=== PATIENT | female | born 1970 | race Caucasian/White ===

== ENCOUNTER 2017-01-29 15:45 | Emergency (ER) | payer OTHER ==
[~2017-01-29] VITALS: Ht 180.3 cm; Wt 85.3 kg
[~2017-01-29 15:45] MED LIST: PERCOCET 5-3251 EACH PO
[2017-01-29 16:05] LABS: ABSOLUTE BASOPHIL COUNT 0.1 /CUMM (0.0-0.2); ABSOLUTE EOSINOPHIL COUNT 0.2 /CUMM (0.0-0.7); ABSOLUTE GRANULOCYTE CT 9.5 /CUMM (1.4-6.5); ABSOLUTE LYMPH COUNT 2.2 /CUMM (1.2-3.4); ABSOLUTE MONOCYTE COUNT 0.6 /CUMM (0.10-0.60); BASOPHIL % 0.4 % (0.0-2.0); EOSINOPHIL % 1.4 % (0-5); HEMATOCRIT 43.7 % (37-47); MEAN CORPUSCULAR HGB 28.2 PG (27.0-31.0); MEAN CORPUSCULAR HGB CONC 33.1 G/DL (33.0-37.0); MEAN CORPUSCULAR VOLUME 85.1 FL (81.0-99.0); MEAN PLATELET VOLUME 7.5 FL (7.4-10.4); PLATELET COUNT 263 /CUMM (130-400); RBC DISTRIBUTION WIDTH 14.4 % (11.5-14.5); RED BLOOD CELL CT 5.14 /CUMM (4.20-5.40); WHITE BLOOD CELL COUNT 12.5 /CUMM (4.8-10.8)
[2017-01-29] MEDS ORDERED: ACETAMINOPHEN500 M4 PO (16:20)
--- NOTE | 2017-01-29 16:22 | ED GENERAL ADULT ---
History of Present Illness General Chief Complaint: Abdominal Pain/Flank Pain Stated Complaint: RT SIDED BACK Source: patient Exam Limitations: no limitations Vital Signs & Intake/Output Vital Signs & Intake/Output Vital Signs Date Time Temp Pulse Resp B/P B/P Pulse O2 O2 Flow FiO2 Mean Ox Delivery Rate 01/30 2020 98.1 106 16 134/60 97 Room Air 01/29 1805 97.6 105 16 116/65 96 Room Air 01/29 1548 97.9 106 18 109/72 97 Room Air Allergies Coded Allergies: NO KNOWN ALLERGIES (12/07/11) Triage Note: PT SENT BY PMD DUE TO 1.5 MONTHS OF MID ABD PAIN THAT RADIATES INTO HER BACK AND NAUSEA Triage Nurses Notes Reviewed? yes HPI: 38-year-old female with a history of recently diagnosed large cell lung cancer ( currently receiving oral medications from [facility] x8 months, which she is unable to recall the name of) presenting with a constant right upper quadrant pain/pressure that radiates into both the epigastric and right flank 1.5 months. Reports abdominal fullness that causes early satiety, no worsening or alleviating factors. Symptoms are associated with nausea, no vomiting. Denies fevers, diarrhea, dysuria, vaginal bleeding/discharge. Has seen her PMD for the same, reports she had no lab work or imaging, was trialed on pantoprazole without relief. (KALYN UMANA,VIJAYA) Reconcile Medications Acetaminophen 500 MG TABLET 3 TAB PO PRN PAIN (Reported) Oxycodone HCl 5 MG TABLET 1 TAB PO EVERY 6 HOUR PRN pain (LEEANN GOLDEN DO) Past History Travel History Traveled to [place] past 21 day No Medical History Any Pertinent Medical History? 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 No (VIJAYA MCCAIN PA-C) Review of Systems Review of Systems Constitutional: Reports: no symptoms. Respiratory: Reports: no symptoms. Cardiovascular: Reports: no symptoms. GI: Reports: abdominal pain, nausea. Denies: constipation, diarrhea, bloody stool, changes in stool, vomiting. Genitourinary: Reports: no symptoms. Musculoskeletal: Reports: no symptoms. Skin: Reports: no symptoms. Neurological/Psychological: Reports: no symptoms. (KALYN UMANA,VIJAYA) Physical Exam Physical Exam General Appearance: well developed/nourished, no apparent distress, mild distress Head: atraumatic Respiratory: normal breath sounds, lungs clear Cardiovascular: regular rate/rhythm Gastrointestinal: normal bowel sounds, soft, no organomegaly, TTP over the RUQ and epigastric area, no rebound or guarding, neg jenkins's sign. Neurologic/Psych: awake, alert, oriented x 3 Core Measures ACS in differential dx? No CVA/TIA Diagnosis: No Severe Sepsis Present: No Septic Shock Present: No (KALYN UMANA,VIJAYA) Progress Differential Diagnoses I considered the following diagnoses in my evaluation of the patient: [ Metastases versus new malignancy versus cholecystitis versus cholelithiasis versus pancreatitis versus GERD versus peptic ulcer disease] Plan of Care: Orders Procedure Date/time Status Add-on Test (ER Only) 01/29 1744 Active LIPASE 01/29 1554 Complete URINALYSIS 01/29 1551 Active LACTIC ACID 01/29 1551 Complete COMPREHENSIVE METABOLIC PANEL 01/29 1551 Complete CBC WITHOUT DIFFERENTIAL 01/29 1551 Complete Laboratory Tests 01/29/17 1554: Lactic Acid Cancelled 01/29/17 1554: Anion Gap 13, Estimated GFR > 60, BUN/Creatinine Ratio 10.0, Glucose 93, Lactic Acid 0.8, Calcium 9.5, Total Bilirubin 0.5, AST 15, ALT 33, Alkaline Phosphatase 119, Total Protein 7.1, Albumin 4.2, Globulin 2.9, Albumin/Globulin Ratio 1.4, Lipase 56, CBC w Diff NO MAN DIFF REQ, RBC 5.14, MCV 85.1, MCH 28.2, RDW 14.4, MPV 7.5, Gran % 76.0 H, Lymphocytes % 17.6 L, Monocytes % 4.6, Eosinophils % 1.4, Basophils % 0.4, Absolute Granulocytes 9.5 H, Absolute Lymphocytes 2.2, Absolute Monocytes 0.6, Absolute Eosinophils 0.2, Absolute Basophils 0.1, PUBS MCHC 33.1 Labs remarkable for elevated white blood cell count to 12. CT scan concerning for mets to liver and bilateral adrenals. Pt informed of findings and expressing concern that she is not receiving adequate care at [facility]. Pt referred to Dr. Mcneill. Given 30 day supply of oxycodone for pain control (ok' d by Dr. Golden). Also given contact information for Dr. Golden office if she is unable to arrange care with Dr. Mcneill. (VIJAYA MCCAIN PA-C) Initial ED EKG: none (VIJAYA MCCAIN PA-C) Departure Departure Disposition: HOME OR SELF CARE Condition: Stable Clinical Impression Primary Impression: Lung cancer Secondary Impressions: Liver mass, Mass of both adrenal glands Referrals: RONALDO COLVIN MD (PCP/Family) Additional Instructions: Use of oxycodone every 6 hours as needed for pain. Follow up with Dr. Mcneill for further management. Please contact Dr. Golden's office if you are unable to get through to Dr. Mcneill. Return to the ED for any new or worsening symptoms. Departure Forms: Customer Survey General Discharge Information (VIJAYA MCCAIN PA-C) Departure Prescriptions: Current Visit Scripts Oxycodone HCl 1 TAB PO EVERY 6 HOUR PRN pain #30 TAB PA/SUPERVISOR WEAVING Co-Sign Statement Statement: ED Attending supervision documentation- [] I saw and evaluated the patient. I have also reviewed all the pertinent lab results and diagnostic results. I agree with the findings and the plan of care as documented in the PA's/SUPERVISOR WEAVING's documentation. [x] I have reviewed the ED Record and agree with the PA's/SUPERVISOR WEAVING's documentation. [] Additions or exceptions (if any) to the PAs/SUPERVISOR WEAVING's note and plan are summarized below: [] (LEEANN GOLDEN DO) Critical Care Note Critical Care Note Critical Care Time: non-applicable (VIJAYA MCCAIN PA-C)
--- NOTE | 2017-01-29 19:50 | CT SCAN REPORT ---
EXAMINATION: CT ABDOMEN AND PELVIS WITH CONTRAST CLINICAL INFORMATION: Right upper quadrant abdominal pain and fullness. Evaluate for metastases from lung cancer. COMPARISON: CT abdomen and pelvis 12/07/2011. TECHNIQUE: Multidetector volumetric imaging was performed of the abdomen and pelvis before and after the IV administration of 95 mL of Optiray 320 intravenous contrast. Sagittal and coronal reformatted images were obtained on the technologist's workstation. DLP: 445 mGy-cm FINDINGS: LUNG BASES: Evaluation of the included lung bases demonstrates minimal dependent bibasilar atelectasis. LIVER, GALLBLADDER, AND BILIARY TREE: The liver is normal in size, shape, and attenuation. No focal hepatic lesion or biliary ductal dilatation is present. The gallbladder is unremarkable with no evidence of radiopaque gallstones, gallbladder wall thickening, or obvious pericholecystic inflammatory changes. PANCREAS: Unremarkable appearance of the pancreas. No peripancreatic inflammatory changes or fluid collections. Of note, there is an ill-defined hypoattenuating density adjacent to the head and uncinate process of the pancreas measuring approximately 1.7 x 2.1 cm (series 2, image 26). This lesion is indeterminate. Cannot exclude metastatic adenopathy given the patient's history of lung cancer. SPLEEN: Unremarkable. ADRENAL GLANDS: In comparison to a prior CT of the abdomen dating back to 2011, there has been interval development of bilateral adrenal gland masses. The right adrenal gland mass measures approximately 3.8 x 6.2 x 6.0 cm. The left adrenal gland mass measures approximately 1.2 x 2.1 cm. These masses are incompletely characterized on this examination. Cannot exclude bilateral adrenal gland metastases. KIDNEYS AND URETERS: The kidneys are normal in size, shape, and attenuation. No hydronephrosis, hydroureter, or calculi seen. No perinephric stranding. There is a simple renal cortical cyst within the lower pole of the right kidney measuring 1.9 cm. BLADDER: Unremarkable. GASTROINTESTINAL TRACT: Normal anatomic orientation of the stomach relative to the duodenum. Normal caliber of abdominal and pelvic bowel loops, without evidence of obstruction or ileus. No circumferential bowel wall thickening with surrounding inflammatory changes to suggest an underlying infectious or inflammatory enterocolitis. Normal-appearing appendix within the right lower quadrant of the abdomen. Scattered colonic diverticulosis, notably involving the descending and rectosigmoid colon, without diverticulitis. No organizing intra-abdominal fluid collections or free intraperitoneal air. ABDOMINAL WALL: No significant hernia is appreciated. LYMPH NODES: As noted above, there has been interval development of a 1.7 x 2.1 cm ill-defined hypoattenuating density within the upper abdomen, adjacent to the head and uncinate process of the pancreas and in the region of the tj hepatis. This hypoattenuating lesion is incompletely characterized on this examination. Cannot exclude metastatic adenopathy. VASCULAR: Patent abdominal vasculature. Normal course and caliber of the abdominal aorta and its branching vessels, without aneurysmal dilatation. Scattered atherosclerosis of the abdominal aorta and its branching vessels. PELVIC VISCERA: Several hypoattenuating structures within the left ovary, which may reflect small left ovarian cysts. OSSEOUS STRUCTURES: No acute osseous abnormality. No visible destructive osseous lesions. Normal alignment of the thoracolumbar spine. IMPRESSION: 1. Interval development of bilateral adrenal gland masses measuring 3.8 x 6.2 x 6.0 cm on the right and 1.2 x 2.1 cm on the left. These masses are indeterminate and incompletely characterized on this examination. Cannot exclude bilateral adrenal gland metastases from the patient's reported history of lung cancer. Consider correlation with PET/CT. 2. Interval development of a 1.7 x 2.1 cm ill-defined hypoattenuating density within the upper abdomen, in the region of the tj hepatis and adjacent to the head and uncinate process of the pancreas. This lesion is also indeterminate but may reflect metastatic adenopathy.
[2017-01-29 20:20] VITALS: BP 134/60
[2017-01-29] MEDS ORDERED: OXYCODONE HCL5 M1 PO (20:40)
[2017-02-05] MEDS ORDERED: NICOTINE PATCH1 EAC2 (16:36)
[2017-02-05] MEDS ORDERED: PANTOPRAZOLE SO40 M1 (16:36)
[2017-02-05] MEDS ORDERED: PROAIR HFA8.5 GM INH (16:36)
[2017-02-05] MEDS ORDERED: OXYCODONE HCL10 M2 PO ×2 (18:42→19:06)
== END 2017-01-29 20:43 ==
LOC: ERH 15:45
PROVIDERS: Emergency Medicine
DX: C22.8 Malignant neoplasm of liver, primary, unspecified as to type (principal); E27.8 Other specified disorders of adrenal gland
CPT/HCPCS: 74177; 96372; 96374; J1885

== ENCOUNTER 2017-09-02 12:58 | Emergency (ER) | payer OTHER ==
[~2017-09-02] VITALS: Ht 180.3 cm; Wt 63.5 kg
[~2017-09-02 12:58] MED LIST changes: +ACETAMINOPHEN500 M4 PO; +AMIODARONE HCL200 M1 PO; +DEXAMETHASONE4 M1 PO; +FOLIC ACID1 M1 PO; +K-TAB ER20 MEQ PO; +LEXAPRO10 M1 PO; +LORAZEPAM0.5 M1 PO; +MARINOL2.5 MG PO; +MELATONIN5 M7 PO; +METHYLPREDNISOLO4 M2 PO; +MS CONTIN100 MG PO; +NICOTINE PATCH1 EAC2; +OXYCODONE HCL10 M2 PO; +OXYCODONE HCL30 M1 PO; +OXYCODONE HCL5 M1 PO; +PANTOPRAZOLE SO40 M1 PO; +PROAIR HFA8.5 GM INH; +PROCHLORPERAZIN10 MG PO; +REGLAN10 M1 PO; +SCOPOLAMINE1 EAC1 TOP; +TRANSDERM-SCOP1 EACH TOP; +ZOFRAN8 M1 PO
--- NOTE | 2017-09-02 13:45 | ED GI/GU/ABDOMINAL COMPLAINT ---
History of Present Illness General Chief Complaint: Nausea, Vomiting, Diarrhea Stated Complaint: +NVD, STAGE 4 LUNG CANCER Source: patient Exam Limitations: no limitations Vital Signs & Intake/Output Vital Signs & Intake/Output Vital Signs Date Time Temp Pulse Resp B/P B/P Pulse O2 O2 Flow FiO2 Mean Ox Delivery Rate 09/02 1612 98.8 88 16 113/56 98 Room Air Room Air 09/02 1303 98.6 96 18 102/72 98 Room Air Allergies Coded Allergies: NO KNOWN ALLERGIES (12/07/11) Reconcile Medications Albuterol Sulfate (Proair Hfa) 90 MCG HFA.AER.AD 2 PUF INH PRN RESPIRATORY ( Reported) Docusate Sodium (Colace) 100 MG CAPSULE 1 CAP PO BID CONSTIPATION (Reported) Dronabinol (Marinol) 2.5 MG CAPSULE 1 CAP PO BID NAUSEA (Reported) Melatonin 5 MG TABLET 1 TAB PO QPM SLEEP (Reported) Metoclopramide HCl (Reglan) 10 MG TABLET 1 TAB PO TID NAUSEA (Reported) 30 minutes before meals and bedtime Olanzapine 10 MG TABLET 1 TAB PO QPM SLEEP (Reported) Ondansetron HCl (Zofran) 8 MG TABLET 1 TAB PO TID NAUSEA (Reported) Oxycodone HCl 30 MG TABLET 1 TAB PO Q4P PRN PAIN (Reported) Oxycodone HCl (Oxycontin) 80 MG TAB.ER.12H 1 TAB PO BID PAIN (Reported) Pantoprazole Sodium 40 MG TABLET.DR 1 TAB PO DAILY ACID REFLUX (Reported) Polyethylene Glycol 3350 17 GRAM POWD.PACK 1 PAC PO DAILY GI (Reported) Scopolamine 1 MG/3 DAY PATCH.TD.3 1 PAT TOP Q72H NAUSEA (Reported) Sennosides (Senna) 8.6 MG TABLET 2 TAB PO QPM CONSTIPATION (Reported) Zinc Sulfate 220 MG (50 MG ZINC) CAPSULE 1 CAP PO DAILY SUPPLEMENT (Reported) Triage Note: PT STATES SHE IS NOT FEELING WELL, NOT ABLE TO KEEP ANYTHING DOWN AND SHE IF VOMITING BLOOD FOR THE PAST 2 DAYS. PT STATES SHE WAS SEEN AT [facility] AND HAD A LITER OF FLUIDS AND NAUSEA MEDS AND SHE LEFT FEELING THE SAME. PT WITH HX OF ETHAN 4 LUNG CA WITH METS. Triage Nurses Notes Reviewed? yes ? N Is pt currently ? No Onset: Abrupt Duration: day(s): (2) Timing: multiple episodes today Location: generalized abdomen Radiation: no radiation Activities at Onset: none Modifying Factors: Worsens With: eating. 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 Patient states the symptoms started yesterday morning. She was seen at [facility] yesterday for a few hours and discharged home but she states she was feeling the same way. No fever but positive chills. Her was sick at home with diarrhea. She is currently on chemotherapy due to have her next round this week. She follows up at some [facility]. This morning she tried to contact her oncologist a few times but was unable to hear back and came here for evaluation. She reports upper abdominal pain. She states there is a scant amount of blood in her vomiting and diarrhea. Patient states she has not been able to tolerate any of her opiate pain medications and keeps vomiting them up. (Kevin ARIAS,Neela) Past History Travel History Traveled to [place] past 21 day No Medical History Any Pertinent Medical History? 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 No (Kevin ARIAS,Neela) Review of Systems Review of Systems Constitutional: Reports: malaise, weakness. Denies: chills, fever. EENTM: Reports: no symptoms. Respiratory: Denies: cough, short of breath, sputum production. Cardiovascular: Reports: no symptoms. GI: Reports: abdominal pain, diarrhea, nausea, vomiting. Genitourinary: Denies: discharge, dysuria, frequency, hematuria. Musculoskeletal: Reports: no symptoms. Skin: Reports: no symptoms. Neurological/Psychological: Reports: no symptoms. Hematologic/Endocrine: Reports: bleeding (SCANT BLOOD IN VOMIT). Denies: bruising, polyuria, polydipsia. Immunologic/Allergic: Denies: splenectomy. All Other Systems: Reviewed and Negative (Neela Brown MD) Physical Exam Physical Exam General Appearance: alert, awake, anxious, cachetic, mild distress, moderate distress, thin Head: atraumatic, normal appearance Eyes: Bilateral: PERRL. Ears, Nose, Throat, Mouth: hearing grossly normal, DRY MUCUS MEMBRANES Neck: normal inspection, supple, full range of motion Respiratory: normal breath sounds, chest non-tender, no respiratory distress Cardiovascular: regular rate/rhythm, normal peripheral pulses Peripheral Pulses: 2+ radial (R), 2+ radial (L) Gastrointestinal: soft, tenderness (MILD DIFFUSE), PALPABLE 2 CM MASS EPIGASTRIUM, METASTATIC LESION PER PATIENT Back: normal inspection, normal range of motion Extremities: normal range of motion Neurologic/Psych: no motor/sensory deficits, awake, alert, oriented x 3 Skin: intact, normal color, warm/dry Core Measures ACS in differential dx? No Sepsis Present: No Sepsis Focused Exam Completed? No (Neela Brown MD) Progress Differential Diagnosis: peptic ulcer, PUD/GERD, ENTERITIS, COLITIS, SUSAN, DEHYDRATION, WORSENING METASTATIC DISESEASE, ILEUS Plan of Care: Orders Procedure Date/time Status EKG 09/02 1354 Active URINALYSIS 09/02 1346 Active LIPASE 09/02 1346 Complete LACTIC ACID 09/02 1346 Complete COMPREHENSIVE METABOLIC PANEL 09/02 1346 Complete CBC WITHOUT DIFFERENTIAL 09/02 1346 Complete MAGNESIUM 09/02 1325 Complete Current Medications Sig/Catherine Start time Last Medication Dose Stop Time Status Admin Oxycodone HCl 30 MG ONCE ONE 09/02 1715 AC (OxyCONTIN) 09/02 1716 Laboratory Tests 09/02/17 1646: Lactic Acid Cancelled 09/02/17 1354: Magnesium Cancelled 09/02/17 1325: Anion Gap 16, Estimated GFR > 60, BUN/Creatinine Ratio 23.3, Glucose 103 H, Lactic Acid 1.2, Calcium 10.5 H, Magnesium 1.8, Total Bilirubin 0.5, AST 16, ALT 28, Alkaline Phosphatase 106, Total Protein 7.7, Albumin 4.8, Globulin 2.9, Albumin/Globulin Ratio 1.7, Lipase 65, CBC w Diff NO MAN DIFF REQ, RBC 5.03, MCV 88.9, MCH 30.1, RDW 14.9 H, MPV 7.6, Gran % 78.6 H, Lymphocytes % 16.0 L, Monocytes % 4.8, Eosinophils % 0.5, Basophils % 0.1, Absolute Granulocytes 9.5 H, Absolute Lymphocytes 1.9, Absolute Monocytes 0.6, Absolute Eosinophils 0.1, Absolute Basophils 0, PUBS MCHC 33.9 DR BRANDON COYNE ONCOLOGIST AT [facility] Diagnostic Imaging: Viewed by Me: CT Scan. Discussed w/RAD: CT Scan. Initial ED EKG: NSR Hand-Off Endorsed To: Nestor Paul MD Endorsed Time: 1500 Pending: CT (Neela Brown MD) Radiology Impression: PATIENT: ROGE JIM PRESENT AGE: 46 PATIENT ACCOUNT NO: [id number] : 68 LOCATION: [facility] ORDERING PHYSICIAN: Nestor Paul MD SERVICE DATE: 09/02/17 EXAM TYPE : CAT - CT ABD & PELVIS W IV CONTRAST EXAMINATION: CT ABDOMEN AND PELVIS WITH CONTRAST CLINICAL INFORMATION: Vomiting, diarrhea. History of metastatic lung cancer COMPARISON: 05/22/2017 TECHNIQUE: Multidetector volumetric imaging was performed of the abdomen and pelvis following IV administration of 95 mL of Optiray 320 intravenous contrast. Sagittal and coronal reformatted images were obtained on the technologist's workstation. DLP: 290 mGy-cm FINDINGS: LUNG BASES : The visualized lung bases are unremarkable. LIVER, GALLBLADDER, AND BILIARY TREE: The liver is normal in size, shape, and attenuation. No focal hepatic lesion or biliary ductal dilatation is present. The gallbladder is unremarkable with no evidence of radiopaque gallstones, gallbladder wall thickening, or obvious pericholecystic inflammatory changes. PANCREAS: Unremarkable. SPLEEN: Unremarkable. ADRENAL GLANDS: Markedly enlarged right adrenal gland has significantly decreased in size although remains diffusely thickened. Nodular thickening of the left adrenal gland has markedly decreased. KIDNEYS AND URETERS : The kidneys are normal in size, shape, and attenuation. No hydronephrosis, hydroureter, or calculi seen. No perinephric stranding. BLADDER: Unremarkable. GASTROINTESTINAL TRACT: The small and large bowel are unremarkable. The appendix is unremarkable. ABDOMINAL WALL: The subcutaneous soft tissue nodule distal to the xiphoid has decreased in size, measuring 1.8 cm. LYMPH NODES: Normal. VASCULAR: Unremarkable. PELVIC VISCERA: Unremarkable. OSSEOUS STRUCTURES: Unremarkable. IMPRESSION: No focal inflammatory process or obstruction. Significant decrease in size of the nodular and thickened adrenal glands, as well as the subcutaneous soft tissue nodule of the anterior upper abdomen. No new abnormality. DICTATED BY: Dwight Velazquez MD DATE/TIME DICTATED:09/02/171629 REPROGRAPHICS ASSOCIATE:MICHELE DATE/TIME TRANSCRIBED:09/02/171629 CONFIDENTIAL, DO NOT COPY WITHOUT APPROPRIATE AUTHORIZATION. 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 09/02/2017 5:02:24 PM I have updated Faith on her test results. She feels "much better" and wishes to return home. She is requesting to drink some orange juice and so we will assure that she is able to drink fluids, and take her potassium and pain medication. She has an appointment with her oncologist specialist on . In regards to her presentation today, we have discussed the possibility of a viral syndrome and side effect of the cancer or treatment. (Beverly ARIAS,Nestor Chang) Departure Departure Condition: Stable Referrals: Unknown (PCP/Family) Departure Forms: Customer Survey General Discharge Information (Kevin ARIAS,Neela) Departure Disposition: HOME OR SELF CARE Clinical Impression Primary Impression: Vomiting and diarrhea Secondary Impressions: Metastatic cancer, Opiate withdrawal Additional Instructions: Continue your current care. If you're feeling nauseous then stick with a clear liquid diet until you're feeling better. Take your previously prescribed nausea medicine if necessary. Restart your potassium pills given your low potassium level here in the emergency department. Notify your primary care physician and cancer specialist about this emergency department visit and treatment plan. Return if any concerns or sudden worsening. Please note that there might be incidental findings in your evaluation that are unrelated to the current emergency department visit. Please notify your primary care doctor about this emergency department visit in order to obtain and review all of the testing performed so that these incidental findings can be monitored as needed. If you had an x-ray performed, please understand that some fractures may not be seen on the initial set of x-rays. If your symptoms persist you might need a repeat set of x-rays to check for such a fracture. If you had a laceration evaluated, please understand that foreign bodies such as glass or wood may not be visible to the naked eye or on plain x-rays. If the wound becomes red, swollen, increasingly more painful or if there is any drainage from the wound, please have it reevaluated by a physician for the possibility of a retained foreign body. If you're unable to follow up as outlined in the discharge instructions please return to the emergency department. Thank you for choosing the [facility] Emergency Department for your care. It was a pleasure to serve you today. Nestor Paul M.D. [facility] (Beverly ARIAS,Nestor Chang)
[2017-09-02 14:36] LABS: ABSOLUTE BASOPHIL COUNT 0 /CUMM (0.0-0.2); ABSOLUTE EOSINOPHIL COUNT 0.1 /CUMM (0.0-0.7); ABSOLUTE GRANULOCYTE CT 9.5 /CUMM (1.4-6.5); ABSOLUTE LYMPH COUNT 1.9 /CUMM (1.2-3.4); ABSOLUTE MONOCYTE COUNT 0.6 /CUMM (0.10-0.60); BASOPHIL % 0.1 % (0.0-2.0); EOSINOPHIL % 0.5 % (0-5); GRANULOCYTE % 78.6 % (42.2-75.2); HEMATOCRIT 44.7 % (37-47); MEAN CORPUSCULAR HGB 30.1 PG (27.0-31.0); MEAN CORPUSCULAR HGB CONC 33.9 G/DL (33.0-37.0); MEAN CORPUSCULAR VOLUME 88.9 FL (81.0-99.0); MEAN PLATELET VOLUME 7.6 FL (7.4-10.4); PLATELET COUNT 221 /CUMM (130-400); RBC DISTRIBUTION WIDTH 14.9 % (11.5-14.5); RED BLOOD CELL CT 5.03 /CUMM (4.20-5.40); WHITE BLOOD CELL COUNT 12.1 /CUMM (4.8-10.8)
[2017-09-02] MEDS ORDERED: COLACE100 M1 PO (14:41)
[2017-09-02] MEDS ORDERED: OLANZAPINE10 M1 PO (14:42)
[2017-09-02] MEDS ORDERED: PANTOPRAZOLE SO40 M1 PO (14:43)
[2017-09-02] MEDS ORDERED: POLYETHYLENE GL17 GM PO (14:43)
[2017-09-02] MEDS ORDERED: OXYCONTIN80 M1 PO (14:43)
[2017-09-02] MEDS ORDERED: SENNA8.6 M3 PO (14:44)
[2017-09-02] MEDS ORDERED: ZINC SULFATE PO (14:45)
--- NOTE | 2017-09-02 16:47 | CT SCAN REPORT ---
EXAMINATION: CT ABDOMEN AND PELVIS WITH CONTRAST CLINICAL INFORMATION: Vomiting, diarrhea. History of metastatic lung cancer COMPARISON: 05/22/2017 TECHNIQUE: Multidetector volumetric imaging was performed of the abdomen and pelvis following IV administration of 95 mL of Optiray 320 intravenous contrast. Sagittal and coronal reformatted images were obtained on the technologist's workstation. DLP: 290 mGy-cm FINDINGS: LUNG BASES: The visualized lung bases are unremarkable. LIVER, GALLBLADDER, AND BILIARY TREE: The liver is normal in size, shape, and attenuation. No focal hepatic lesion or biliary ductal dilatation is present. The gallbladder is unremarkable with no evidence of radiopaque gallstones, gallbladder wall thickening, or obvious pericholecystic inflammatory changes. PANCREAS: Unremarkable. SPLEEN: Unremarkable. ADRENAL GLANDS: Markedly enlarged right adrenal gland has significantly decreased in size although remains diffusely thickened. Nodular thickening of the left adrenal gland has markedly decreased. KIDNEYS AND URETERS: The kidneys are normal in size, shape, and attenuation. No hydronephrosis, hydroureter, or calculi seen. No perinephric stranding. BLADDER: Unremarkable. GASTROINTESTINAL TRACT: The small and large bowel are unremarkable. The appendix is unremarkable. ABDOMINAL WALL: The subcutaneous soft tissue nodule distal to the xiphoid has decreased in size, measuring 1.8 cm. LYMPH NODES: Normal. VASCULAR: Unremarkable. PELVIC VISCERA: Unremarkable. OSSEOUS STRUCTURES: Unremarkable. IMPRESSION: No focal inflammatory process or obstruction. Significant decrease in size of the nodular and thickened adrenal glands, as well as the subcutaneous soft tissue nodule of the anterior upper abdomen. No new abnormality.
[2017-09-02] MEDS ORDERED: OXYCODONE HCL30 M1 PO (17:21)
[2017-09-02 17:48] VITALS: BP 110/60
== END 2017-09-02 17:48 ==
LOC: ERH 12:58
PROVIDERS: Emergency Medicine
DX: R11.2 Nausea with vomiting, unspecified (principal); R19.7 Diarrhea, unspecified; C79.9 Secondary malignant neoplasm of unspecified site; F11.23 Opioid dependence with withdrawal
CPT/HCPCS: 74177; 93005; 93010; 96361; 96374; 96375; 99291; J2405